=== PATIENT | male | born 1985 | race Two or more races ===

== ENCOUNTER 2024-11-08 19:00 | Outpatient (CLI) | payer OTHER | END 2024-11-08 19:01 | disposition home or self-care (01) | LOC: CSHSLEEP 19:00 | PROVIDERS: ATTEND Internal Medicine | DX: G47.33 Obstructive sleep apnea (adult) (pediatric) (principal); R53.83 Other fatigue; G25.89 Other specified extrapyramidal and movement disorders; R06.83 Snoring | CPT/HCPCS: 95800 ==